=== PATIENT | female | born 1975 | race African-American/Black ===

== ENCOUNTER → 2023-12-11 | Emergency (ER) | payer BC ==
[~2023-12-11] MED LIST: IBUPROFEN 400 MG TAB ONE
--- OUTSIDE RECORDS SUMMARY | 2023-12-11 12:58 | XMS REPORT | Continuity of Care Document ---
Author Name Unknown Address [address] [place] [address] [facility] Address [address] [place] [address] Care Team Providers Care Tailercpa Name Role Phone Unavailable Unavailable Unavailable
--- NOTE | 2023-12-11 13:16 | EDPHYS ---
Physician Documentation [facility] Name: Myles Dumont Age: 48 yrs Sex: Female : 1975 Arrival Date: 12/11/2023 Time: 12:53 Bed DX4 Private MD: EMILEE Physician Angelito Agarwal HPI: 12/11 13:19 This 48 yrs old Black Female presents to ER via Ambulatory with complaints of Nose Ring kb Hurts. 13:19 Patient is a 48-year-old female who presents to have her nose ring removed. States she kb had it put in approximately 1 year ago. Went to a job today and they told her to remove it but she could not and now it is causing her pain.. 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 - Social history:: Smoking status: Patient denies any tobacco usage or history of. ROS: 13:16 Constitutional: Negative for fever, chills, and weight loss, kb 13:16 ENT: Positive for nose pain due to jewelry, 13:16 All other systems are negative, Exam: 13:19 Constitutional: This is a well developed, well nourished patient who is awake, alert, kb and in no acute distress. Head/Face: Normocephalic, atraumatic. ENT: Moist Mucous membranes Cardiovascular: Regular rate Respiratory: Respirations even and unlabored. No increased work of breathing. Talking in full sentences Skin: Warm, dry with normal turgor. Normal color. MS/ Extremity: Pulses equal, no cyanosis. Neurovascular intact. Full, normal range of motion. Neuro: Awake and alert, GCS 15, oriented to person, place, time, and situation. Moves all extremities. Normal gait. 13:19 ENT: Nose: Nose ring in place on left side without swelling, erythema, warmth or drainage., Vital Signs: 13:18 Resp 16; Temp 97.7(TE); Weight 96.62 kg; Height 5 ft. 5 in. ; Pain 10/10; ap3 13:18 Body Mass Index 35.44 (96.62 kg, 165.1 cm) ap3 13:18 Pain Scale: Adult ap3 MDM: 13:06 Patient medically screened. kb 13:12 ED course: Nose ring removed . kb 13:21 Differential Diagnosis foreign body, skin infection. Data reviewed: vital signs, nurses kb notes. Counseling: I had a detailed discussion with the patient and/or guardian regarding the historical points, exam findings, and any diagnostic results supporting the discharge/admit diagnosis, the need for outpatient follow up, a family practitioner, to return to the emergency department if symptoms worsen or persist or if there are any questions or concerns that arise at home. Administered Medications: 13:18 Drug: Ibuprofen PO 800 mg PO once Route: PO; ap3 Disposition Summary: 12/11/23 13:16 Discharge Ordered Notes: Location: Home kb Condition: Stable kb Diagnosis - Encounter for removal of nose ring kb Followup: kb - With: Emergency Department - When: As needed - Reason: Worsening of condition Followup: kb - With: Private Physician - When: 2 - 3 days - Reason: Recheck today's complaints, Continuance of care, Re-evaluation by your physician Discharge Instructions: - Discharge Summary Sheet kb - Skin Foreign Body kb Forms: - Medication Reconciliation Form kb - Thank You Letter kb - Antibiotic Education kb - Prescription Opioid Use kb - Patient Portal Instructions kb - Leadership Thank You Letter kb Signatures: Briana Ladd FNP-C FNP-Ckb Prokisch, Amanda RN RN ap3
--- NOTE | 2023-12-11 13:16 | ER ---
Nurse's Notes [facility] Name: Myles Dumont Age: 48 yrs Sex: Female : 1975 Arrival Date: 12/11/2023 Time: 12:53 Bed DX4 Private MD: Diagnosis: Encounter for removal of nose ring Presentation: 12/11 13:11 Chief complaint: Patient states: she was trying to remove her nose ring, and it was ap3 hurting while she was trying to remove it. Coronavirus screen: At this time, the client does not indicate any symptoms associated with coronavirus-19. Ebola Screen: No symptoms or risks identified at this time. Initial Sepsis Screen: Does the patient meet any 2 criteria? No. Patient's initial sepsis screen is negative. Does the patient have a suspected source of infection? No. Patient's initial sepsis screen is negative. Risk Assessment: Do you want to hurt yourself or someone else? Patient reports no desire to harm self or others. Onset of symptoms was December 11, 2023. 13:11 Method Of Arrival: Ambulatory ap3 13:11 Acuity: OTIS 5 ap3 Triage Assessment: 13:13 General: Appears in no apparent distress. Behavior is calm, cooperative, appropriate ap3 for age. Pain: Complains of pain in left side of nose. Neuro: Level of Consciousness is awake, alert, obeys commands, Oriented to person, place, time, situation, Appropriate for age. Cardiovascular: Patient's skin is warm and dry. Respiratory: Airway is patent Respiratory effort is even, unlabored, Respiratory pattern is regular, symmetrical. 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 - Social history:: Smoking status: Patient denies any tobacco usage or history of. Screenin:13 [facility] ED Fall Risk Assessment (Adult) History of falling in the last 3 months, ap3 including since admission No falls in past 3 months (0 pts). Abuse screen: Denies threats or abuse. Nutritional screening: No deficits noted. Tuberculosis screening: No symptoms or risk factors identified. Vital Signs: 13:18 Resp 16; Temp 97.7(TE); Weight 96.62 kg; Height 5 ft. 5 in. ; Pain 10/10; ap3 13:18 Body Mass Index 35.44 (96.62 kg, 165.1 cm) ap3 13:18 Pain Scale: Adult ap3 ED Course: 12:57 Patient arrived in ED. mg5 12:59 Briana Ladd FNP-C is [facility]. kb 12:59 Angelito Agarwal MD is Attending Physician. kb 13:12 Triage completed. ap3 13:13 Arm band placed on right wrist. ap3 13:13 Patient has correct armband on for positive identification. ap3 13:14 No provider procedures requiring assistance completed. Patient did not have IV access ap3 during this emergency room visit. 13:24 Provided Education on: discharge instructions. ap3 Administered Medications: 13:18 Drug: Ibuprofen PO 800 mg PO once Route: PO; ap3 Medication: 13:13 VIS not applicable for this client. ap3 Outcome: 13:16 Discharge ordered by . kb 13:24 Discharged to home ambulatory, ap3 13:24 Condition: good 13:24 Discharge instructions given to patient, Instructed on discharge instructions, follow up and referral plans. Demonstrated understanding of instructions, follow-up care, 13:24 Patient left the ED. ap3 Signatures: Briana Ladd FNP-C FNP-Ckb Prokisch, Amanda RN RN ap3 Zhanna Moser mg5
[2023-12-11 20:32] VITALS: TEMP 97.7
== END ==
LOC: ER 12:53
DX: T17.1XXA Foreign body in nostril, initial encounter (principal)